=== PATIENT | female | born 1970 | race Caucasian/White ===

== ENCOUNTER → 2023-03-27 13:44 | Outpatient (BNVA) | payer SELFPAY | PROVIDERS: PCP Family Medicine; Visit Provider Family Medicine | DX: Z13.6 Encounter for screening for cardiovascular disorders (principal); K58.1 Irritable bowel syndrome with constipation; Z86.69 Personal history of other diseases of the nervous system and sense organs; Z12.31 Encounter for screening mammogram for malignant neoplasm of breast; G25.81 Restless legs syndrome | CPT/HCPCS: 80053; 80061; 84443; 85025 ==